=== PATIENT | male | born 1970 | race Caucasian/White ===

== ENCOUNTER 2016-10-14 16:44 | Emergency (ER) | payer MEDICARE, OTHER ==
[2016-10-14 17:02] VITALS: BP 133/83; PULSE 105; RESP 18; TEMP 98
--- NOTE | 2016-10-14 17:28 | ED ---
Skin/Abscess/FB HPI - General Chief complaint: Skin/Abscess/Foreign Body Stated complaint: Scabies Check Time Seen by Provider: 10/14/16 17:03 Source: patient, RN notes reviewed, old records reviewed Mode of arrival: ambulatory Limitations: no limitations - History of Present Illness Initial comments: This is a 46 year old male for a scabies check, patient reports he has had scabies for the past year and cant get rid of them. He reports that he has been using permethrin, and his PCP has prescribed him Eurax for treatment. Patient states that he accidentally spilled his Eurax and needs a refill. Denies any other symptoms besides pruritic rash between groin, armpits, and neck. Patient states that he felt a scaby come out of his skin, he has it on a microscope slide. - Related Data Home Medications Medication Instructions Recorded Confirmed Atenolol [Tenormin] 50 mg PO BID 01/20/15 06/08/16 Cholecalciferol [Vitamin D3] 5,000 unit PO DAILY 01/20/15 06/08/16 clonazePAM [KlonoPIN] 0.5 mg PO DAILY 02/06/15 06/08/16 Buprenorphine HCl [Subutex] 8 mg SUBLINGUAL TID 03/14/15 06/08/16 Esomeprazole Magnesium [NexIUM] 40 mg PO DAILY 03/14/15 06/08/16 Gabapentin [Neurontin] 800 mg PO BID 03/14/15 06/08/16 Mirtazapine [Remeron] 45 mg PO HS 03/14/15 06/08/16 Previous Rx's Medication Instructions Recorded Permethrin 5% Cream [Elimite] 1 applic TOPICAL ONCE #1 bottle 06/08/16 Permethrin 5% Cream [Elimite] 1 applic TOPICAL ONCE #60 cream..g. 10/14/16 Allergies Allergy/AdvReac Type Severity Reaction Status Date / Time duloxetine HCl Allergy Unknown Verified 10/14/16 17:02 [From Cymbalta] metal Allergy Rash/Hives Uncoded 10/14/16 17:02 rubber Allergy Rash/Hives Uncoded 10/14/16 17:02 Review of Systems ROS Statement: Those systems with pertinent positive or pertinent negative responses have been documented in the HPI. ROS Other: All systems not noted in ROS Statement are negative. Past Medical History Past Medical History: GERD/Reflux, Seizure Disorder Additional Past Medical History / Comment(s): irregular heart rate, seizure LAST ONE 2007, BACK PAIN History of Any Multi-Drug Resistant Organisms: None Reported Past Surgical History: Back Surgery, Cholecystectomy Additional Past Surgical History / Comment(s): PAIN CLINIC PROCEDURES Past Anesthesia/Blood Transfusion Reactions: No Reported Reaction Past Psychological History: Anxiety, Depression Additional Psychological History / Comment(s): agoraphobic Smoking Status: Current every day smoker Past Alcohol Use History: None Reported Past Drug Use History: Marijuana Additional Drug Use History / Comment(s): "usually 1 hit at night" - Past Family History Mother Family Medical History: No Reported History General Exam Limitations: no limitations General appearance: alert, in no apparent distress Head exam: Present: atraumatic, normocephalic, normal inspection Eye exam: Present: normal appearance, PERRL, EOMI. Absent: scleral icterus, conjunctival injection, periorbital swelling ENT exam: Present: normal exam, mucous membranes moist Neck exam: Present: normal inspection. Absent: tenderness, meningismus, lymphadenopathy Respiratory exam: Present: normal lung sounds bilaterally. Absent: respiratory distress, wheezes, rales, rhonchi, stridor Cardiovascular Exam: Present: regular rate, normal rhythm, normal heart sounds. Absent: systolic murmur, diastolic murmur, rubs, gallop, clicks GI/Abdominal exam: Present: soft, normal bowel sounds. Absent: distended, tenderness, guarding, rebound, rigid Extremities exam: Present: normal inspection, full ROM, normal capillary refill. Absent: tenderness, pedal edema, joint swelling, calf tenderness Back exam: Present: normal inspection Neurological exam: Present: alert, oriented X3, CN II-XII intact Psychiatric exam: Present: normal affect, normal mood Skin exam: Present: warm, dry, intact, normal color, rash (erythematious papular rash in groin, consistent with scabies. ) Course Vital Signs 10/14/16 10/14/16 16:59 17:39 Temperature 98.0 F 98.0 F Pulse Rate 105 H 105 H Respiratory 18 18 Rate Blood Pressure 133/83 133/83 O2 Sat by Pulse 99 99 Oximetry Medical Decision Making - Medical Decision Making This is a a46 year old male for retreatment for his known scabies. He states he needs a refill of Eurax. Hand written Rx completed for this. Patient also given Rx for permethrin. Discussed follow up with demratologist. Patient has an appointment with [facility] specialist to find out if his scabies are resistent. Disposition Clinical Impression: Scabies Disposition: HOME SELF-CARE Condition: Good Instructions: Scabies (ED) Additional Instructions: Shake lotion well before using. Take a bath or shower prior to application. Apply from neck down to toes. Trim fingernails and apply under nails (can use toothbrush, which should be disposed of after use). Take a cleansing bath 48 hours after the final application. Contaminated clothing and bed linens should be washed on hot cycle or dry-cleaned and all clothing and bedding should be changed the day after application. Follow-up with your [facility] specialist. Return to the emergency department if any alarming signs or symptoms occur. Prescriptions: Permethrin 5% Cream [Elimite] 1 applic TOPICAL ONCE #60 cream..g. Referrals: Mike Dillard MD [Primary Care Provider] - 1-2 days Time of Disposition: 17:24
== END 2016-10-14 17:39 | disposition home or self-care (01) ==
LOC: EC 16:44
DX: B86 Scabies (principal); G40.909 Epilepsy, unspecified, not intractable, without status epilepticus; F32.9 Major depressive disorder, single episode, unspecified; F41.9 Anxiety disorder, unspecified; F17.200 Nicotine dependence, unspecified, uncomplicated; Z79.899 Other long term (current) drug therapy; Z88.8 Allergy status to other drugs, medicaments and biological substances; Z91.048 Other nonmedicinal substance allergy status
CPT/HCPCS: 99282

== ENCOUNTER 2016-11-03 12:25 | Emergency (ER) | payer MEDICARE, OTHER ==
[2016-11-03 12:44] VITALS: BP 135/88; PULSE 112; RESP 20; TEMP 99.3
[2016-11-03] MEDS ORDERED: SODIUM CHLORIDE 0.9% 1,000 ML IV STA (12:59)
[2016-11-03 13:11] LABS: Basophils # (A) 0.1 k/uL (0-0.2); Basophils % (A) 1 %; CH 32.1; CHCM 35.9; Eosinophils % (A) 0 %; HCT 42.5 % (39.0-53.0); HDW 2.69; Luc # (Auto) 0.19; Luc % (Auto) 2; Lymphocytes # (A) 2.3 k/uL (1.0-4.8); Lymphocytes % (A) 26 %; MCH 31.6 pg (25.0-35.0); MCHC 35.2 g/dL (31.0-37.0); MCV 89.8 fL (80.0-100.0); Mean Platelet Volume 7.6; Monocytes # (A) 0.4 k/uL (0-1.0); Monocytes % (A) 5 %; Neutrophils # (A) 5.8 k/uL (1.3-7.7); Neutrophils % (A) 66 %; RBC 4.74 m/uL (4.30-5.90); RDW 13.4 % (11.5-15.5); WBC 8.8 k/uL (3.8-10.6); WBC (Perox) 8.03
--- NOTE | 2016-11-03 13:18 | XR ---
EXAMINATION TYPE: XR chest 2V DATE OF EXAM: 11/03/2016 1:12 PM COMPARISON: NONE INDICATION: Weakness chest pain TECHNIQUE: Single frontal view of the chest is obtained. FINDINGS: The heart size is normal. The pulmonary vasculature is normal. The lungs are clear. Some hyperinflation may be present. Correlate for COPD IMPRESSION: 1. No acute pulmonary process.
[2016-11-03 13:19] LABS: INR 1.1 (<1.1); Partial Thromboplastin Time 25.9 sec (22.0-30.0); Prothrombin Time 11.5 sec (9.0-12.0)
[2016-11-03 13:32] LABS: ALT 32 U/L (21-72); AST 27 U/L (17-59); Alkaline Phosphatase 63 U/L (38-126); Anion Gap 15 mmol/L; Blood Urea Nitrogen 15 mg/dL (9-20); Calcium 10.3 mg/dL (8.4-10.2); Carbon Dioxide 24 mmol/L (22-30); Chloride 104 mmol/L (98-107); Glucose 108 mg/dL (74-99); Magnesium 1.8 mg/dL (1.6-2.3); Non-African American GFR(MDRD) >60 (>60 ml/min/1.73 sqM); Phosphorous 3.7 mg/dL (2.5-4.5); Sodium 143 mmol/L (137-145); Total Bilirubin 1.1 mg/dL (0.2-1.3); Total Protein 7.7 g/dL (6.3-8.2)
[2016-11-03 13:39] LABS: Creatine Kinase 125 U/L (55-170)
[2016-11-03 13:53] LABS: Creatine Kinase MB 1.9 ng/mL (0.0-2.4); Troponin I <0.012 ng/mL (0.000-0.034)
--- NOTE | 2016-11-03 13:55 | ED ---
General Adult HPI - General Chief complaint: Weakness Stated complaint: Chest Pain, Skin problems Time Seen by Provider: 11/03/16 12:54 Source: patient Mode of arrival: ambulatory Limitations: no limitations - History of Present Illness Initial comments: This is a 46 male to the ED co weakness not feeling well and rash for months, multiple evaluations, no fevers. Patient states these symptoms in the going on for quite some time, states he is losing weight not feeling well, and then just diffuse body rash. No fevers. The rash is unchanged. He tried many different treatments including treatment for scabies, treated for multiple other issues. - Related Data Home Medications Medication Instructions Recorded Confirmed Atenolol [Tenormin] 50 mg PO BID 01/20/15 11/03/16 Cholecalciferol [Vitamin D3] 5,000 unit PO DAILY 01/20/15 11/03/16 clonazePAM [KlonoPIN] 0.5 mg PO BID 02/06/15 11/03/16 Buprenorphine HCl [Subutex] 8 mg SUBLINGUAL TID 03/14/15 11/03/16 Cyclobenzaprine [Flexeril] 10 mg PO HS PRN 11/03/16 11/03/16 hydrOXYzine HCL [Atarax] 10 mg PO DAILY 11/03/16 11/03/16 Allergies Allergy/AdvReac Type Severity Reaction Status Date / Time duloxetine HCl AdvReac Severe RAGE Verified 11/03/16 13:21 [From Cymbalta] metal Allergy Rash/Hives Uncoded 10/14/16 17:02 rubber Allergy Rash/Hives Uncoded 10/14/16 17:02 Review of Systems ROS Statement: Those systems with pertinent positive or pertinent negative responses have been documented in the HPI. ROS Other: All systems not noted in ROS Statement are negative. Past Medical History Past Medical History: GERD/Reflux, Seizure Disorder Additional Past Medical History / Comment(s): irregular heart rate, seizure LAST ONE 2007, BACK PAIN History of Any Multi-Drug Resistant Organisms: None Reported Past Surgical History: Back Surgery, Cholecystectomy Additional Past Surgical History / Comment(s): PAIN CLINIC PROCEDURES Past Anesthesia/Blood Transfusion Reactions: No Reported Reaction Past Psychological History: Anxiety, Depression Additional Psychological History / Comment(s): agoraphobic Smoking Status: Current every day smoker Past Alcohol Use History: None Reported Past Drug Use History: Marijuana Additional Drug Use History / Comment(s): "usually 1 hit at night" - Past Family History Mother Family Medical History: No Reported History General Exam Limitations: no limitations General appearance: alert, in no apparent distress Head exam: Present: atraumatic, normocephalic, normal inspection Eye exam: Present: normal appearance, PERRL, EOMI. Absent: scleral icterus, conjunctival injection, periorbital swelling ENT exam: Present: normal exam, mucous membranes moist Neck exam: Present: normal inspection. Absent: tenderness, meningismus, lymphadenopathy Respiratory exam: Present: normal lung sounds bilaterally. Absent: respiratory distress, wheezes, rales, rhonchi, stridor Cardiovascular Exam: Present: regular rate, normal rhythm, tachycardia, normal heart sounds. Absent: systolic murmur, diastolic murmur, rubs, gallop, clicks GI/Abdominal exam: Present: soft, normal bowel sounds. Absent: distended, tenderness, guarding, rebound, rigid Extremities exam: Present: normal inspection, full ROM, normal capillary refill. Absent: tenderness, pedal edema, joint swelling, calf tenderness Back exam: Present: normal inspection Neurological exam: Present: alert, oriented X3, CN II-XII intact Psychiatric exam: Present: normal affect, normal mood Skin exam: Present: warm, dry, intact, normal color. Absent: rash Course Vital Signs 11/03/16 12:42 Temperature 99.3 F Pulse Rate 112 H Respiratory 20 Rate Blood Pressure 135/88 O2 Sat by Pulse 100 Oximetry - Reevaluation(s) Reevaluation #1: 11/03/16 16:41 Patient has no significant complaints, patient states he can wait 2 days for results of outpatient lab testing EKG Findings - EKG Comments: EKG Findings:: EKG shows sinus tachycardia rate 113, pO2 38, QRS 76, QTc 33 Medical Decision Making - Medical Decision Making 46 mallei today complaining of rash, skin reaction, infestation, patient brought and samples of bugs that he states are living in his skin, these are sent to the lab which will be sent for outpatient testing. Patient informed of these results, happy with the results will be discharged home - Lab Data Result diagrams: 11/03/16 12:55 11/03/16 12:55 Lab Results 11/03/16 11/03/16 11/03/16 Range/Units 12:55 12:55 12:55 WBC 8.8 (3.8-10.6) k/uL RBC 4.74 (4.30-5.90) m/uL Hgb 15.0 (13.0-17.5) gm/dL Hct 42.5 (39.0-53.0) % MCV 89.8 (80.0-100.0) fL MCH 31.6 (25.0-35.0) pg MCHC 35.2 (31.0-37.0) g/dL RDW 13.4 (11.5-15.5) % Plt Count 224 (150-450) k/uL Neutrophils % 66 % Lymphocytes % 26 % Monocytes % 5 % Eosinophils % 0 % Basophils % 1 % Neutrophils # 5.8 (1.3-7.7) k/uL Lymphocytes # 2.3 (1.0-4.8) k/uL Monocytes # 0.4 (0-1.0) k/uL Eosinophils # 0.0 (0-0.7) k/uL Basophils # 0.1 (0-0.2) k/uL PT (9.0-12.0) sec INR (<1.1) APTT (22.0-30.0) sec Sodium 143 (137-145) mmol/L Potassium 4.0 (3.5-5.1) mmol/L Chloride 104 (98-107) mmol/L Carbon Dioxide 24 (22-30) mmol/L Anion Gap 15 mmol/L BUN 15 (9-20) mg/dL Creatinine 0.80 (0.66-1.25) mg/dL Est GFR (MDRD) Af Amer >60 (>60 ml/min/1.73 sqM) Est GFR (MDRD) Non-Af >60 (>60 ml/min/1.73 sqM) Glucose 108 H (74-99) mg/dL Calcium 10.3 H (8.4-10.2) mg/dL Phosphorus 3.7 (2.5-4.5) mg/dL Magnesium 1.8 (1.6-2.3) mg/dL Total Bilirubin 1.1 (0.2-1.3) mg/dL AST 27 (17-59) U/L ALT 32 (21-72) U/L Alkaline Phosphatase 63 (38-126) U/L Total Creatine Kinase 125 (55-170) U/L CK-MB (CK-2) 1.9 (0.0-2.4) ng/mL CK-MB (CK-2) Rel Index 1.5 Troponin I <0.012 (0.000-0.034) ng/mL Total Protein 7.7 (6.3-8.2) g/dL Albumin 5.0 (3.5-5.0) g/dL Lipase (23-300) U/L TSH 0.847 (0.465-4.680) mIU/L 11/03/16 11/03/16 Range/Units 12:55 12:55 WBC (3.8-10.6) k/uL RBC (4.30-5.90) m/uL Hgb (13.0-17.5) gm/dL Hct (39.0-53.0) % MCV (80.0-100.0) fL MCH (25.0-35.0) pg MCHC (31.0-37.0) g/dL RDW (11.5-15.5) % Plt Count (150-450) k/uL Neutrophils % % Lymphocytes % % Monocytes % % Eosinophils % % Basophils % % Neutrophils # (1.3-7.7) k/uL Lymphocytes # (1.0-4.8) k/uL Monocytes # (0-1.0) k/uL Eosinophils # (0-0.7) k/uL Basophils # (0-0.2) k/uL PT 11.5 (9.0-12.0) sec INR 1.1 (<1.1) APTT 25.9 (22.0-30.0) sec Sodium (137-145) mmol/L Potassium (3.5-5.1) mmol/L Chloride (98-107) mmol/L Carbon Dioxide (22-30) mmol/L Anion Gap mmol/L BUN (9-20) mg/dL Creatinine (0.66-1.25) mg/dL Est GFR (MDRD) Af Amer (>60 ml/min/1.73 sqM) Est GFR (MDRD) Non-Af (>60 ml/min/1.73 sqM) Glucose (74-99) mg/dL Calcium (8.4-10.2) mg/dL Phosphorus (2.5-4.5) mg/dL Magnesium (1.6-2.3) mg/dL Total Bilirubin (0.2-1.3) mg/dL AST (17-59) U/L ALT (21-72) U/L Alkaline Phosphatase (38-126) U/L Total Creatine Kinase (55-170) U/L CK-MB (CK-2) (0.0-2.4) ng/mL CK-MB (CK-2) Rel Index Troponin I (0.000-0.034) ng/mL Total Protein (6.3-8.2) g/dL Albumin (3.5-5.0) g/dL Lipase 41 (23-300) U/L TSH (0.465-4.680) mIU/L Disposition Clinical Impression: Infestation (skin) Disposition: HOME SELF-CARE Condition: Good Instructions: Insect Bite or Sting (ED), Bed Bugs (ED), Pediculosis (ED), Body Lice (ED) Referrals: Mike Dillard MD [Primary Care Provider] - 1-2 days
[2016-11-05 08:45] LABS: Mis test requested (Non-blood) MICID
== END 2016-11-03 17:00 | disposition home or self-care (01) ==
LOC: EC 12:25
DX: B88.9 Infestation, unspecified (principal); R53.1 Weakness; K21.9 Gastro-esophageal reflux disease without esophagitis; G40.909 Epilepsy, unspecified, not intractable, without status epilepticus; F32.9 Major depressive disorder, single episode, unspecified; F41.9 Anxiety disorder, unspecified; F17.200 Nicotine dependence, unspecified, uncomplicated; Z79.899 Other long term (current) drug therapy; Z88.8 Allergy status to other drugs, medicaments and biological substances; Z91.09 Other allergy status, other than to drugs and biological substances
CPT/HCPCS: 36415; 71020; 80053; 82550; 82553; 83690; 83735; 84100; 84443; 84484; 85025; 85610; 85730; 87169; 93005; 96360; 96361; 99285

== ENCOUNTER → 2018-05-01 | Outpatient (CLI) | payer MEDICARE, OTHER ==
--- NOTE | 2018-05-01 17:40 | CT ---
EXAMINATION TYPE: CT abdomen pelvis w con DATE OF EXAM: 05/01/2018 COMPARISON: 12/27/2013 INDICATION: Microscopic hematuria DLP: 382.7 mGycm, Automated exposure control for dose reduction was used. CONTRAST: 100 mL of Isovue 300. Study performed with Oral Contrast TECHNIQUE: Axial images were obtained from above the diaphragm to the pubic rami in the axial plane a t 5 mm thick sections. Reconstructed images are reviewed on the computer in the coronal plane. FINDINGS: Limited CT sections are obtained the lung bases. The lung bases are clear. CT ABDOMEN: Liver: Normal Spleen: Normal Pancreas: Normal Adrenal glands: Not well seen. As visualized, the adrenal glands are normal. Gallbladder: Not identified Kidneys: No masses are evident. No hydronephrosis is present. No cysts are present. Delayed images were obtained through the kidneys, which remain unremarkable. Aorta: Vascular calcification is within the aorta. Inferior vena cava: Normal. CT PELVIS: Loops of bowel within the abdomen and pelvis are normal. There are loops of bowel which are incom pletely distended or lack oral contrast limiting their evaluation. Appendix: Normal as visualized. Urinary bladder: Normal. Genitourinary structures: Prostate is unremarkable. Osseous structures: No suspicious lytic or sclerotic lesions. Postsurgical changes are within the pos terior dorsal lower lumbar spine. Changes appear to be within the posterior iliac crests. IMPRESSIONS: 1. No etiology to account for microscopic hematuria.
== END ==
LOC: RADCTMAIN 12:37
PROVIDERS: ATTEND Nurse Practitioner Family
DX: R31.21 Asymptomatic microscopic hematuria (principal)
CPT/HCPCS: 74177; Q9967